=== PATIENT | male | born 1985 | race Hispanic/Latino ===

== ENCOUNTER 2019-08-29 12:49 | Inpatient (IN) | payer OTHER ==
[2019-08-29] MEDS ORDERED: Acetaminophen 500 MG TAB ONE (13:04)
--- NOTE | 2019-08-29 13:25 | RAD ---
Exam: Chest one view HISTORY:COVID positive patient. Sepsis alert. Fever. Comparison: None FINDINGS: Cardiac silhouette: Normal Aorta: Unremarkable Pulmonary vessels: Normal Costophrenic angles: Clear LUNGS: Diminished lung volumes. Patchy interstitial and alveolar opacities. Pneumothorax: None Osseous abnormalities: None IMPRESSION: 1. Patchy interstitial and alveolar opacities due to viral infiltrate/pneumonia.
[2019-08-29 13:28] LABS: #Lymphocytes 0.6 thou/uL (1.20-3.40); #Monocytes 0.2 thou/uL (0.11-0.59); #Neutrophils 8.1 thou/uL (1.40-6.50); %Eosinophils 0.1 % (0.0-10.0); %Lymphocytes 6.9 % (21.0-51.0); %Monocytes 1.8 % (0.0-10.0); %Neutrophils 91.1 % (42.0-75.0); Hemoglobin 14.6 g/dL (14.0-18.0); Mean Corpuscular HGB CONC 33.2 g/dL (32.0-36.0); Mean Corpuscular Volume 87.6 fL (78.0-98.0); Mean Platelet Volume 9.2 fL (7.4-10.4); Platelet Count 128 thou/uL (130-400); Red Blood Cell (RBC) Count 5.04 mill/uL (4.70-6.10); White Blood Cell (WBC) Count 8.9 thou/uL (4.8-10.8)
[2019-08-29 13:49] LABS: ALT (SGPT) 18 U/L (8-55); AST (SGOT) 27 U/L (5-34); Albumin 4.3 g/dL (3.5-5.0); Alkaline Phosphatase 64 U/L (40-110); Anion Gap 13 mmol/L (10-20); BUN (Urea Nitrogen) 9 mg/dL (8.9-20.6); Bilirubin, Total 0.5 mg/dL (0.2-1.2); Calc. Creatinine Clearance 0 mL/min (70-130); Calcium 9.4 mg/dL (7.8-10.44); Carbon Dioxide 28 mmol/L (22-29); Chloride 97 mmol/L (98-107); Estimated GFR-MDRD 86; Glucose 179 mg/dL (70-105); Potassium 3.6 mmol/L (3.5-5.1); Protein, Total 8.3 g/dL (6.0-8.3); Sodium 134 mmol/L (136-145)
[2019-08-29] MEDS ORDERED: Dexamethasone 10 MG/ML VIAL ONE (14:03)
[2019-08-29] MEDS ORDERED: Azithromycin 500 MG VIAL ONE (14:03)
[2019-08-29 14:15] LABS: Actual Bicarbonate (HCO3a) 27.9 mEq/L (22-28); Base Excess (BEa) 4.2 mEq/L (-2.0 to +3.0); CO2 Tension 38.9 mmHg (35.0-45.0); Calcium, Ionized (arterial) 1.15 mmol/L (1.12-1.30); Carboxyhemoglobin (COHb) 1.4 gm% (0.0-3.0); Hemoglobin (Hb) 13.8 g/dL (14.0-18.0); O2 Tension (PaO2), arterial 87.5 mmHg (80.0-100.0); Potassium - ABG Lab 3.68 mmol/L (3.70-5.30); pH, Arterial 7.47 (7.35-7.45)
[2019-08-29 14:16] LABS: ALV-art Gradient 120.555 (0-20); Puncture Site LRA
[2019-08-29] MEDS ORDERED: Acetaminophen 325 MG TAB PO PRN (14:27)
[2019-08-29] MEDS ORDERED: Calcium Carbonate 500 MG ChewTAB PO PRN (14:27)
[2019-08-29] MEDS ORDERED: Senokot S 8.6-50 MG TAB PO PRN (14:27)
[2019-08-29] MEDS ORDERED: Ondansetron PF 4 MG/2 ML Vial IVP PRN (14:27)
[2019-08-29] MEDS ORDERED: Ondansetron ODT 4 MG TAB PO PRN (14:27)
[2019-08-29] MEDS ORDERED: Bisacodyl 10 MG SUPP PR PRN (14:27)
[2019-08-29] MEDS ORDERED: Non-Formulary Item 1 EACH in Sodium Chloride 0.9% 250 ML 210 ML IV SCH (15:30)
[2019-08-29 15:44] LABS: Troponin I Less than 0.010 ng/mL (< 0.028)
[2019-08-29] MEDS: Calcium Carbonate 600 MG + Vit D TAB PO SCH (18:23)
[2019-08-29 18:28] VITALS: BMI 34.5
[2019-08-29] MEDS: guaiFENesin ER 600 MG TAB PO SCH (20:00)
--- NOTE | 2019-08-29 20:42 | HP ---
PRIMARY CARE PHYSICIAN: Kevin Fernandez MD CHIEF COMPLAINT: Shortness of breath. HISTORY OF PRESENT ILLNESS: The patient is a 34-year-old male who was diagnosed with COVID-19 infection 8 days ago. Over the last 2 to 3 days, he developed gradual-worsening shortness of breath to the extent that he was short of breath on minimal exertion. He also was febrile. He had cough, which was productive of small amount of phlegm. Occasionally, he had blood in the sputum. He denies any chest pain, palpitations, or syncope. He had history of exposure to COVID-19 patient prior to onset of his symptoms. In the emergency room, his initial vital signs showed temperature of 103.2 with respirations of 35, pulse rate of 120, with a blood pressure of 127/75, O2 saturation of 92% on 3 L nasal cannula. His room air O2 sats were 80%. He received azithromycin, dexamethasone and Tylenol in the emergency room. PAST MEDICAL HISTORY: 1. Recent diagnosis of COVID-19. 2. Carpal tunnel syndrome. 3. Gout. PAST SURGICAL HISTORY: Bilateral carpal tunnel surgery in 2008. ALLERGIES: NO KNOWN DRUG ALLERGIES. SOCIAL HISTORY: The patient denies any smoking or drug use. He occasionally drinks alcohol. He lives at home with his family. FAMILY HISTORY: Positive for diabetes and heart disease. REVIEW OF SYSTEMS: All other review of systems was reviewed and was found negative. PHYSICAL EXAMINATION: VITAL SIGNS: As discussed above. GENERAL: A 34-year-old male, ill appearing, in mild respiratory distress at rest. HEENT: Head is atraumatic and normocephalic. Sclerae are anicteric. Moist mucous membranes. No oral lesion. NECK: Supple. No JVD appreciated. No carotid bruit. LUNGS: Showed bibasilar rales with rhonchi. No wheezing. Minimal accessory muscle use. HEART: S1 and S2 present. Regular. Tachycardic. No rubs or gallops. ABDOMEN: Soft, nontender. Bowel sounds present. EXTREMITIES: No edema or calf tenderness. NEUROLOGICAL: Grossly nonfocal. Moves all 4 extremities. PSYCHIATRY: Alert, awake, and oriented x3. SKIN: Warm and dry. LYMPH NODES: No palpable lymph nodes in the neck. PERIPHERAL VASCULAR: Radial pulses palpable bilaterally. MUSCULOSKELETAL: No joint swelling or tenderness. LABORATORY FINDINGS: CBC showed WBC of 8.9 with 91% neutrophil. Hemoglobin was 14.6. D-dimer was 0.39. Chemistry showed sodium 134, potassium 3.6, chloride 97, bicarb 28, BUN of 9, and creatinine 1.01. Ferritin was 1360. CRP 27.1. Lactic acid was 1.9. Troponin was negative. BNP was negative. ABG showed pH of 7.47 with pCO2 of 38.9 on 36% FiO2. DIAGNOSTIC STUDIES: Chest x-ray by my review showed bilateral interstitial infiltrates. IMPRESSION: 1. Severe sepsis secondary to coronavirus disease-19 pneumonia. 2. Thrombocytopenia. 3. Obesity with a BMI of 34.6. 4. Hyponatremia. 5. Generalized weakness with fatigue and malaise secondary to above. 6. Elevated inflammatory markers. 7. History of gout. PLAN: The patient will be monitored in the COVID-19 unit. He will be started on remdesivir with dexamethasone. I discussed the case with Infectious Disease, Dr. Soria, who recommended remdesivir. The patient understands the side effects of remdesivir. I have discussed with the patient the emergency use authorization provided by FDA for the use of this medicine, and I explained that it reduces the course of illness. Side effects including renal failure and liver toxicity were discussed. The patient understood and accepted the administration of this medicine. Daily labs will be ordered. The patient meets the criteria for the above medications. We will add Lovenox for DVT prophylaxis. We will monitor inflammatory markers every other day per Infectious Disease recommendation. We will also add empiric cefepime for now. We will discontinue once procalcitonin level comes back. The patient understands the above plan of care. Job ID: [id number]
[2019-08-29] MEDS: Cefepime 1 GM in Sodium Chloride 0.9% 100 ML IVPB SCH (22:21)
[2019-08-30] MEDS ORDERED: Albuterol 200 PUFF (6.7GM INHALER) INH PRN (00:07)
[2019-08-30 05:42] LABS: #Basophils 0.1 thou/uL (0.0-0.2); #Lymphocytes 0.5 thou/uL (1.20-3.40); #Monocytes 0.3 thou/uL (0.11-0.59); #Neutrophils 7.6 thou/uL (1.40-6.50); %Basophils 0.9 % (0.0-1.0); %Eosinophils 0.1 % (0.0-10.0); %Lymphocytes 5.3 % (21.0-51.0); %Neutrophils 90.8 % (42.0-75.0); Hemoglobin 12.9 g/dL (14.0-18.0); Mean Corpuscular Hemoglobin 28.8 pg (27.0-31.0); Mean Corpuscular Volume 87.2 fL (78.0-98.0); Mean Platelet Volume 9.1 fL (7.4-10.4); Platelet Count 151 thou/uL (130-400); RBC Distribution Width 11.8 % (11.5-14.5); Red Blood Cell (RBC) Count 4.49 mill/uL (4.70-6.10); White Blood Cell (WBC) Count 8.3 thou/uL (4.8-10.8)
[2019-08-30 06:07] LABS: ALT (SGPT) 16 U/L (8-55); AST (SGOT) 19 U/L (5-34); Albumin 3.8 g/dL (3.5-5.0); Alkaline Phosphatase 52 U/L (40-110); Anion Gap 11 mmol/L (10-20); BUN (Urea Nitrogen) 13 mg/dL (8.9-20.6); Bilirubin, Total 0.3 mg/dL (0.2-1.2); Calc. Creatinine Clearance 196 mL/min (70-130); Calcium 9.2 mg/dL (7.8-10.44); Carbon Dioxide 29 mmol/L (22-29); Chloride 99 mmol/L (98-107); Estimated GFR-MDRD Greater than 90; Globulin 3.6 g/dL (2.4-3.5); Glucose 155 mg/dL (70-105); Magnesium 2.3 mg/dL (1.6-2.6); Protein, Total 7.4 g/dL (6.0-8.3); Sodium 135 mmol/L (136-145)
[2019-08-30] MEDS ORDERED: Dexamethasone 1 MG TAB PO SCH (08:00)
[2019-08-30] MEDS: Cefepime 1 GM in Sodium Chloride 0.9% 100 ML IVPB SCH ×2 (08:42→19:33)
[2019-08-30] MEDS: Ascorbic Acid 500 mg Chewable Tablet PO SCH (08:43)
[2019-08-30] MEDS: Zinc Sulfate 220 MG CAP PO SCH (08:43)
[2019-08-30] MEDS: Calcium Carbonate 600 MG + Vit D TAB PO SCH ×2 (08:43→16:59)
[2019-08-30] MEDS: guaiFENesin ER 600 MG TAB PO SCH ×2 (08:43→19:33)
[2019-08-30] MEDS: Multivit, Therapeutic 1 TAB PO SCH (08:43)
[2019-08-30] MEDS: Loratadine 10 MG TAB PO SCH (08:43)
[2019-08-30] MEDS: Saccharomyces boulardii 250 MG CAP PO SCH (08:43)
[2019-08-30] MEDS ORDERED: Dexamethasone 10 MG/ML VIAL SLOW IVP SCH (09:00)
[2019-08-30] MEDS ORDERED: Enoxaparin Sodium 40 MG/0.4 ML SYRINGE SC SCH (09:00)
--- NOTE | 2019-08-30 09:05 | PDOC.HOSPP ---
- Subjective Encounter Date: 08/30/19 Encounter Time: 18:30 Subjective: SOB. Feels gen weak. No new complaints. No overnight events - Objective Vital Signs & Weight: Vital Signs (12 hours) Temp Pulse Resp BP Pulse Ox 08/30/19 08:42 94 L 08/30/19 04:00 100.3 F H 86 20 127/78 94 L 08/29/19 23:37 99.2 F 89 20 130/75 100 Weight Weight 248 lb I&O: 08/29/19 08/30/19 08/31/19 06:59 06:59 06:59 Intake Total 240 Output Total 500 Balance -260 Result Diagrams: 09/02/19 04:32 09/02/19 04:32 Radiology Reviewed by me: Yes (CXR - B/L infiltrate) EKG Reviewed by me: Yes (Tele SR) Hospitalist ROS - Review of Systems Constitutional: reports: weakness, malaise Gastrointestinal: denies: nausea, vomiting, abdominal pain, diarrhea, constipation, melena, hematochezia, other Genitourinary: denies: dysuria, frequency, incontinence, hematuria, retention, other - Medication Medications: Active Medications Generic Name Dose Route Start Last Admin Trade Name Freq PRN Reason Stop Dose Admin Ascorbic Acid 1,000 mg 08/30/19 09:00 08/30/19 08:43 Vitamin C PO 1,000 mg DAILY FLY Administration Calcium/Vitamin D 1 tab 08/29/19 17:00 08/30/19 08:43 Caltrate 600 + Vit D PO 1 tab BID-WM FLY Administration Dexamethasone 6 mg 08/30/19 08:00 08/30/19 08:42 Decadron PO 6 mg QAM-WM FLY Administration Enoxaparin Sodium 40 mg 08/30/19 09:00 08/30/19 08:42 Lovenox SC 40 mg 0900 FLY Administration Guaifenesin 600 mg 08/29/19 21:00 08/30/19 08:43 Mucinex PO 600 mg Q12HR FLY Administration Cefepime HCl 1 gm/ Sodium 100 mls @ 200 mls/hr 08/29/19 21:00 08/30/19 08:42 Chloride IVPB 100 mls Q12HR FLY Administration Loratadine 10 mg 08/30/19 09:00 08/30/19 08:43 Claritin PO 10 mg DAILY FLY Administration Multivitamins 1 tab 08/30/19 09:00 08/30/19 08:43 Theragran PO 1 tab DAILY FLY Administration Pantoprazole Sodium 40 mg 08/30/19 09:00 08/30/19 08:43 Protonix PO 40 mg DAILY FLY Administration Saccharomyces Boulardii 250 mg 08/30/19 09:00 08/30/19 08:43 Florastor PO 250 mg DAILY FLY Administration Zinc Sulfate 220 mg 08/30/19 09:00 08/30/19 08:43 Zinc Sulfate PO 220 mg DAILY FLY Administration - Exam General Appearance: ill appearing Neck: no JVD Respiratory: normal chest expansion, no tachypnea Skin: no rashes Neurological: no new deficit Psychiatric: normal affect, A&O x 3 Hosp A/P - Plan 1. Severe sepsis secondary to coronavirus disease-19 pneumonia. 2. Thrombocytopenia. 3. Obesity with a BMI of 34.6. 4. Hyponatremia. 5. Generalized weakness with fatigue and malaise secondary to above. 6. Elevated inflammatory markers. 7. History of gout. PLAN: Cont Remdesivir Cont dexamethasone. Monitor labs daily CRP/D-dimer/Ferritin Await ID input Cont isolation
[2019-08-30 10:31] LABS: Actual Bicarbonate (HCO3a) 24.7 mEq/L (22-28); Base Excess (BEa) 1.2 mEq/L (-2.0 to +3.0); CO2 Tension 35.9 mmHg (35.0-45.0); Calcium, Ionized (arterial) 1.18 mmol/L (1.12-1.30); Carboxyhemoglobin (COHb) 0.8 gm% (0.0-3.0); Hemoglobin (Hb) 14.2 g/dL (14.0-18.0); O2 Tension (PaO2), arterial 63.1 mmHg (80.0-100.0); Potassium - ABG Lab 3.92 mmol/L (3.70-5.30); pH, Arterial 7.46 (7.35-7.45)
--- NOTE | 2019-08-30 10:31 | RAD ---
Exam: Chest one view HISTORY:COVID. Hypoxia and shortness of breath Comparison: 08/29/2019 FINDINGS: Cardiac silhouette: Normal Aorta: Unremarkable Pulmonary vessels: Normal Costophrenic angles: Clear LUNGS: Persistent diminished lung volumes with diffuse interstitial and alveolar opacities. Pneumothorax: None Osseous abnormalities: None IMPRESSION: No significant interval change. Persistent lung parenchymal opacifications.
[2019-08-30 10:42] LABS: Puncture Site LB
[2019-08-30] MEDS: methylPREDNISolone Sod Succ 40 MG VIAL IVP SCH ×3 (12:05→23:20)
--- NOTE | 2019-08-30 13:10 | CON ---
DATE OF CONSULTATION: HISTORY OF PRESENT ILLNESS: Bharathi Mai is a 34-year-old gentleman, who was admitted to the hospital with respiratory failure secondary to coronavirus pneumonia. He apparently was diagnosed to have positive serology coronavirus, presented to the ER with shortness of breath gradually getting worse. His initial temperature in the ER was 99.9, pulse 93, respirations 25, blood pressure 160/78, his saturations are 98% initially on high-flow. This morning apparently, his saturations are improved during switching to O2 on 5 L nasal O2. He received a dose of Remdesivir last night. His initial diagnosis was 8 days ago. Initially, he was relatively asymptomatic and finally he started having difficulty breathing. PAST MEDICAL HISTORY: Pertinent for gout. PREVIOUS SURGERIES: Carpal tunnel. ALLERGIES: NONE. SOCIAL HISTORY: No tobacco or substance abuse. Minimal alcohol. HOME MEDICINES: Unknown. Social history, unremarkable. PHYSICAL EXAMINATION: VITAL SIGNS: Temperature 98, pulse 72, respiratory rate 24, saturations this morning 94% on nasal O2, blood pressure 112/87. CHEST: No crackles or wheezing. CARDIAC: Normal S1 and S2. No gallops. ABDOMEN: No masses. LABORATORY DATA: PO2 of 63, pCO2 of 35, pH 7.46 on 5 L. X-ray shows bilateral infiltrates. White count 8000. Repeat chest x-ray was ordered this morning. IMPRESSION: Respiratory failure secondary to coronavirus positive bronchopneumonia diagnosed 8 days ago, morbid obesity, acute respiratory distress syndrome. PLAN: I increased the steroids. Continue Maxipime, Zithromax, Remdesivir, convalescent plasma. We will follow. Consultation note, 70 minutes, 50% direct patient care. Job ID: [id number]
[2019-08-30] MEDS: Non-Formulary Item 1 EACH in Sodium Chloride 0.9% 250 ML 230 ML IV SCH (15:02)
--- NOTE | 2019-08-30 20:19 | CON ---
DATE OF CONSULTATION: 08/30/2019 REASON FOR CONSULTATION: COVID-19 pneumonia. HISTORY OF PRESENT ILLNESS: A 34-year-old, who has no medical history and works driving a dump truck and has had symptoms consistent with COVID infection for the past nine days approximately. He was tested last week and then turned positive and then deteriorated, had to be admitted. On arrival; temperature 103.2 and O2 saturations were 92 and BP 118/72. He was tachypneic, appear toxic. He was in moderate respiratory distress. Lungs did not show any crackles or wheezing. Heart exam, normal. Abdomen; soft, not tender or distended. Other findings initially with a white cell count 8.9, hemoglobin 14.6, and platelets 128 with 91% neutrophils. D-dimer 0.39. A pH of 7.47, pCO2 of 38, and pO2 of 87. Chemistries were fairly unremarkable. Glucose 155 and globulin 3.6. The CRP was high though at 27 and ferritin 1360. BNP was less than 10. So, he has been started on Remdesivir and Decadron and cefepime. Yesterday, he decompensated and became very very febrile and tachycardic, hypoxemic, so Pulmonary is consulted. He was switched to methylprednisolone as getting convalescent plasma. He is awake and is feeling a little better. He denies headaches. Mild dyspnea and some cough. No sputum production. He had some hemoptysis earlier. No abdominal pain or diarrhea. No genitourinary symptoms. No joint symptoms. No skin disorder. PAST MEDICAL HISTORY: Negative. SOCIAL HISTORY: Works driving a dump truck. Never smoker. Lives with family in the area. ALLERGIES: NONE. CURRENT MEDICATIONS: 1. Albuterol. 2. Vitamin C. 3. Dulcolax. 4. Caltrate. 5. Cefepime. 6. Lovenox. 7. Mucinex. 8. Claritin. 9. Medrol. 10. Remdesivir. 11. Methylprednisolone. 12. Convalescent plasma. PHYSICAL EXAMINATION: VITAL SIGNS: T-max 100.3, BP 117/67, pulse 82, respirations 22, and O2 saturation 97. SKIN: Normal. Few tattoos. Peripheral IV access. He is voiding in the urinal. No lymphadenopathy. HEENT: Ocular movements are intact. Sclerae white. Pupils are equal. Oral cavity normal. NECK: Supple. No jugular vein distention. LUNGS: Symmetric clear breath sounds. HEART: S1 and S2. Regular rate. No S3 or S4. ABDOMEN: Soft, not distended or tender. EXTREMITIES: Moves extremities equally. LABORATORY DATA: White cell count is 8.3, hemoglobin 12.9, and platelets 151 with 9% neutrophils and a chemistry with a sodium 135 and creatinine 0.86. Liver profile normal. Albumin 3.8. Blood cultures, no growth thus far. Chest x-ray with diffuse bilateral infiltrates. There was not very good inspiratory effort. The admit chest x-ray demonstrated infiltrates with not as confluent. ASSESSMENT AND PLAN: Severe COVID pneumonia with initial deterioration, tomorrow is going to be the day, so he is in inflammatory phase of illness now, I believe, and that probably explains the deterioration over the past 48 hours. He is now at 97 with nasal cannula 5 L. He is at risk for further deterioration, but hopefully with corticosteroids and the antiviral treatments that he will turn around. Otherwise, he will end up with in the ICU with high-flow nasal cannula or intubated. May try via prone positioning for him even without intubation. See if next time, he becomes hypoxemic, if he would improve the oxygenation. Job ID: [id number] [facility]
[2019-08-31] MEDS: methylPREDNISolone Sod Succ 40 MG VIAL IVP SCH ×4 (05:18→23:59)
[2019-08-31 05:31] LABS: #Lymphocytes 0.6 thou/uL (1.20-3.40); #Monocytes 0.3 thou/uL (0.11-0.59); #Neutrophils 11.8 thou/uL (1.40-6.50); %Eosinophils 0.1 % (0.0-10.0); %Monocytes 2.4 % (0.0-10.0); %Neutrophils 92.5 % (42.0-75.0); Mean Corpuscular HGB CONC 33.4 g/dL (32.0-36.0); Mean Corpuscular Hemoglobin 28.9 pg (27.0-31.0); Mean Corpuscular Volume 86.5 fL (78.0-98.0); Mean Platelet Volume 8.5 fL (7.4-10.4); Platelet Count 209 thou/uL (130-400); RBC Distribution Width 11.6 % (11.5-14.5); Red Blood Cell (RBC) Count 4.51 mill/uL (4.70-6.10); White Blood Cell (WBC) Count 12.7 thou/uL (4.8-10.8)
[2019-08-31 05:57] LABS: ALT (SGPT) 16 U/L (8-55); AST (SGOT) 19 U/L (5-34); Albumin 3.7 g/dL (3.5-5.0); Alkaline Phosphatase 49 U/L (40-110); Anion Gap 16 mmol/L (10-20); BUN (Urea Nitrogen) 19 mg/dL (8.9-20.6); Bilirubin, Total 0.3 mg/dL (0.2-1.2); Calc. Creatinine Clearance 192 mL/min (70-130); Calcium 9.3 mg/dL (7.8-10.44); Carbon Dioxide 26 mmol/L (22-29); Chloride 100 mmol/L (98-107); Estimated GFR-MDRD Greater than 90; Globulin 3.6 g/dL (2.4-3.5); Glucose 177 mg/dL (70-105); Protein, Total 7.3 g/dL (6.0-8.3); Sodium 138 mmol/L (136-145)
[2019-08-31] MEDS: Ascorbic Acid 500 mg Chewable Tablet PO SCH (08:36)
[2019-08-31] MEDS: Loratadine 10 MG TAB PO SCH (08:37)
[2019-08-31] MEDS: guaiFENesin ER 600 MG TAB PO SCH ×2 (08:37→21:34)
[2019-08-31] MEDS: Zinc Sulfate 220 MG CAP PO SCH (08:37)
[2019-08-31] MEDS: Calcium Carbonate 600 MG + Vit D TAB PO SCH ×2 (08:37→16:00)
[2019-08-31] MEDS: Multivit, Therapeutic 1 TAB PO SCH (08:37)
[2019-08-31] MEDS: Saccharomyces boulardii 250 MG CAP PO SCH (08:37)
[2019-08-31] MEDS: Cefepime 1 GM in Sodium Chloride 0.9% 100 ML IVPB SCH ×2 (08:37→21:34)
[2019-08-31] MEDS ORDERED: Enoxaparin Sodium 40 MG/0.4 ML SYRINGE SC SCH (09:00)
--- NOTE | 2019-08-31 09:53 | PRG ---
DATE OF SERVICE: 08/31/2019 SUBJECTIVE: Bharathi Mai is a 34-year-old gentleman with coronavirus positive pneumonia, acute respiratory distress syndrome. OBJECTIVE: VITAL SIGNS: Temperature 97, pulse 78, saturations on 50% Venti mask, blood pressure 104/57, short of breath still. CHEST: Crackles. No wheezing. CARDIAC: Normal S1, S2. No gallops. ABDOMEN: No masses. LABORATORY DATA: PO2 was 63, pCO2 of 30% 5 L nasal O2. His white count was only 12,000, platelet count is normal. Coronavirus positive pneumonia, respiratory failure. Continue Maxipime, doxycycline steroids. He has already had remdisivir as well as plasma. We will increase his Lovenox to twice a day since they are very hypercoagulable. We will continue to follow. Hopefully, once his saturation improved, he may be discharged to home. Job ID: [id number]
--- NOTE | 2019-08-31 10:01 | PDOC.HOSPP ---
- Subjective Encounter Date: 08/31/19 Encounter Time: 19:00 Subjective: No new complaints. SOB + No overnight events - Objective Vital Signs & Weight: Vital Signs (12 hours) Temp Pulse Resp BP Pulse Ox 08/31/19 08:20 94 L 08/31/19 08:02 97.9 F 78 40 H 104/57 L 92 L 08/31/19 08:00 92 L 08/31/19 05:24 98.8 F 73 32 H 113/65 94 L 08/30/19 23:31 99.7 F H 88 32 H 120/62 96 Weight Weight 248 lb I&O: 08/30/19 08/31/19 09/01/19 06:59 06:59 06:59 Intake Total 240 0 Output Total 500 800 Balance -260 -800 Result Diagrams: 09/02/19 04:32 09/02/19 04:32 EKG Reviewed by me: Yes (Tele SR) Hospitalist ROS - Review of Systems Gastrointestinal: denies: nausea, vomiting, abdominal pain, diarrhea, constipation, melena, hematochezia, other Genitourinary: denies: dysuria, frequency, incontinence, hematuria, retention, other - Medication Medications: Active Medications Generic Name Dose Route Start Last Admin Trade Name Freq PRN Reason Stop Dose Admin Ascorbic Acid 1,000 mg 08/30/19 09:00 08/31/19 08:36 Vitamin C PO 1,000 mg DAILY FLY Administration Calcium/Vitamin D 1 tab 08/29/19 17:00 08/31/19 08:37 Caltrate 600 + Vit D PO 1 tab BID-WM FLY Administration Guaifenesin 600 mg 08/29/19 21:00 08/31/19 08:37 Mucinex PO 600 mg Q12HR FLY Administration Non-Formulary Medication 1 230 mls @ 230 mls/hr 08/30/19 15:00 08/30/19 15:02 each/ Sodium Chloride IV 09/02/19 15:59 230 mls 1500 FLY Administration Cefepime HCl 1 gm/ Sodium 100 mls @ 200 mls/hr 08/29/19 21:00 08/31/19 08:37 Chloride IVPB 100 mls Q12HR FLY Administration Loratadine 10 mg 08/30/19 09:00 08/31/19 08:37 Claritin PO 10 mg DAILY FLY Administration Methylprednisolone Sodium Succinate 40 mg 08/30/19 12:00 08/31/19 05:18 Solu-Medrol IVP 40 mg Q6HR FLY Administration Multivitamins 1 tab 08/30/19 09:00 08/31/19 08:37 Theragran PO 1 tab DAILY FLY Administration Saccharomyces Boulardii 250 mg 08/30/19 09:00 08/31/19 08:37 Florastor PO 250 mg DAILY FLY Administration Zinc Sulfate 220 mg 08/30/19 09:00 08/31/19 08:37 Zinc Sulfate PO 220 mg DAILY FLY Administration - Exam General Appearance: NAD Eye: PERRL Neck: no JVD Respiratory: no tachypnea Neurological: no new deficit Psychiatric: normal affect, A&O x 3 Hosp A/P - Plan 1. Severe sepsis/Acute hypoxic resp failue due to COVID-19 pneumonia. 2. Thrombocytopenia. 3. Obesity with a BMI of 34.6. 4. Hyponatremia. 5. Generalized weakness with fatigue and malaise secondary to above. 6. Elevated inflammatory markers. 7. History of gout. PLAN: Cont IV Remdesivir - on day 3 Cont IV Steroids CRP/D-dimer/Ferritin every other day ID/Pulm input appreciated Cont isolation AM labs
[2019-08-31] MEDS ORDERED: Doxycycline 100 MG CAP PO SCH (10:15)
[2019-08-31] MEDS: Non-Formulary Item 1 EACH in Sodium Chloride 0.9% 250 ML 230 ML IV SCH (15:55)
[2019-08-31] MEDS ORDERED: guaiFENesin/Codeine Phosphate 200 mg/20 mg 10 ml UD Cup PO PRN (18:15)
[2019-08-31] MEDS ORDERED: Cepastat Lozenges 1 LOZ PO PRN (18:45)
[2019-08-31] MEDS: Famotidine/PF 20 mg/2ml Vial SLOW IVP SCH (21:33)
[2019-08-31] MEDS: Doxycycline 100 MG CAP PO SCH (21:33)
[2019-08-31] MEDS: Enoxaparin Sodium 40 MG/0.4 ML SYRINGE SC SCH (21:35)
[2019-08-31] MEDS: Guaifenesin DM 100-10/5 ML UDCUP PO PRN (22:16)
[2019-09-01] MEDS: methylPREDNISolone Sod Succ 40 MG VIAL IVP SCH ×4 (05:25→23:29)
[2019-09-01 05:53] LABS: #Lymphocytes 0.7 thou/uL (1.20-3.40); #Monocytes 0.6 thou/uL (0.11-0.59); #Neutrophils 12.6 thou/uL (1.40-6.50); %Basophils 0.1 % (0.0-1.0); %Lymphocytes 4.7 % (21.0-51.0); %Monocytes 4.6 % (0.0-10.0); %Neutrophils 90.6 % (42.0-75.0); Hemoglobin 13.2 g/dL (14.0-18.0); Mean Corpuscular HGB CONC 33.5 g/dL (32.0-36.0); Mean Corpuscular Hemoglobin 29.2 pg (27.0-31.0); Mean Corpuscular Volume 87.1 fL (78.0-98.0); Mean Platelet Volume 8.6 fL (7.4-10.4); Platelet Count 256 thou/uL (130-400); RBC Distribution Width 11.7 % (11.5-14.5); Red Blood Cell (RBC) Count 4.53 mill/uL (4.70-6.10); White Blood Cell (WBC) Count 13.9 thou/uL (4.8-10.8)
[2019-09-01 06:17] LABS: ALT (SGPT) 16 U/L (8-55); AST (SGOT) 15 U/L (5-34); Albumin 3.6 g/dL (3.5-5.0); Alkaline Phosphatase 52 U/L (40-110); Anion Gap 18 mmol/L (10-20); BUN (Urea Nitrogen) 21 mg/dL (8.9-20.6); Bilirubin, Total 0.4 mg/dL (0.2-1.2); Calc. Creatinine Clearance 179 mL/min (70-130); Calcium 9.2 mg/dL (7.8-10.44); Carbon Dioxide 24 mmol/L (22-29); Chloride 102 mmol/L (98-107); Estimated GFR-MDRD Greater than 90; Globulin 3.4 g/dL (2.4-3.5); Glucose 180 mg/dL (70-105); Potassium 4.5 mmol/L (3.5-5.1); Sodium 139 mmol/L (136-145)
[2019-09-01] MEDS: Zinc Sulfate 220 MG CAP PO SCH (08:09)
[2019-09-01] MEDS: Enoxaparin Sodium 40 MG/0.4 ML SYRINGE SC SCH ×2 (08:10→19:20)
[2019-09-01] MEDS: Ascorbic Acid 500 mg Chewable Tablet PO SCH (08:10)
[2019-09-01] MEDS: Saccharomyces boulardii 250 MG CAP PO SCH (08:10)
[2019-09-01] MEDS: Calcium Carbonate 600 MG + Vit D TAB PO SCH ×2 (08:10→17:35)
[2019-09-01] MEDS: Doxycycline 100 MG CAP PO SCH ×2 (08:10→19:20)
[2019-09-01] MEDS: Multivit, Therapeutic 1 TAB PO SCH (08:10)
[2019-09-01] MEDS: guaiFENesin ER 600 MG TAB PO SCH ×2 (08:10→19:20)
[2019-09-01] MEDS: Loratadine 10 MG TAB PO SCH (08:10)
[2019-09-01] MEDS: Famotidine/PF 20 mg/2ml Vial SLOW IVP SCH ×2 (08:11→19:20)
[2019-09-01] MEDS: Cefepime 1 GM in Sodium Chloride 0.9% 100 ML IVPB SCH ×2 (08:11→19:19)
--- NOTE | 2019-09-01 08:50 | PDOC.HOSPP ---
- Subjective Encounter Date: 09/01/19 Encounter Time: 18:00 Subjective: No new complaints. SOB with dry cough+. No overnight events - Objective Vital Signs & Weight: Vital Signs (12 hours) Temp Pulse Resp BP BP Pulse Ox 09/01/19 08:18 94 L 09/01/19 08:15 98.5 F 69 20 116/69 95 09/01/19 05:35 98.2 F 58 L 24 H 113/55 L 94 L 09/01/19 02:27 96 09/01/19 00:10 61 93 L 08/31/19 21:50 98.9 F 77 40 H 120/66 92 L Weight Weight 244 lb 3.2 oz I&O: 08/31/19 09/01/19 09/02/19 06:59 06:59 06:59 Intake Total 240 340 Output Total 800 1025 Balance -560 -685 Result Diagrams: 09/02/19 04:32 09/02/19 04:32 EKG Reviewed by me: Yes (Tele SR) Hospitalist ROS - Review of Systems Cardiovascular: denies: chest pain, palpitations, orthopnea, paroxysmal noc. dyspnea, edema, light headedness, other Gastrointestinal: denies: nausea, vomiting, abdominal pain, diarrhea, constipation, melena, hematochezia, other - Medication Medications: Active Medications Generic Name Dose Route Start Last Admin Trade Name Bowenq PRN Reason Stop Dose Admin Ascorbic Acid 1,000 mg 08/30/19 09:00 09/01/19 08:10 Vitamin C PO 1,000 mg DAILY FLY Administration Calcium/Vitamin D 1 tab 08/29/19 17:00 09/01/19 08:10 Caltrate 600 + Vit D PO 1 tab BID-WM FLY Administration Doxycycline Hyclate 100 mg 08/31/19 21:00 09/01/19 08:10 Vibramycin PO 09/07/19 09:01 100 mg BID FLY Administration Enoxaparin Sodium 40 mg 08/31/19 21:00 09/01/19 08:10 Lovenox SC 40 mg BID FLY Administration Famotidine 20 mg 08/31/19 21:00 09/01/19 08:11 Pepcid SLOW IVP 20 mg BID FLY Administration Guaifenesin 600 mg 08/29/19 21:00 09/01/19 08:10 Mucinex PO 600 mg Q12HR FLY Administration Guaifenesin/Dextromethorphan 15 ml 08/31/19 18:45 08/31/19 22:16 Robitussin Dm PO 15 ml Q4H PRN Administration Cough Non-Formulary Medication 1 230 mls @ 230 mls/hr 08/30/19 15:00 08/31/19 15:55 each/ Sodium Chloride IV 09/02/19 15:59 230 mls 1500 FLY Administration Cefepime HCl 1 gm/ Sodium 100 mls @ 200 mls/hr 08/29/19 21:00 09/01/19 08:11 Chloride IVPB 100 mls Q12HR FLY Administration Loratadine 10 mg 09/01/19 09:00 09/01/19 08:10 Claritin PO 10 mg DAILY FLY Administration Methylprednisolone Sodium Succinate 40 mg 08/30/19 12:00 09/01/19 05:25 Solu-Medrol IVP 40 mg Q6HR FLY Administration Multivitamins 1 tab 08/30/19 09:00 09/01/19 08:10 Theragran PO 1 tab DAILY FLY Administration Saccharomyces Boulardii 250 mg 08/30/19 09:00 09/01/19 08:10 Florastor PO 250 mg DAILY FLY Administration Sodium Chloride 10 ml 08/29/19 14:27 09/01/19 08:11 Flush - Normal Saline IVF 10 ml PRN PRN Administration Saline Flush Zinc Sulfate 220 mg 08/30/19 09:00 09/01/19 08:09 Zinc Sulfate PO 220 mg DAILY FLY Administration - Exam General Appearance: NAD Eye: PERRL Heart: RRR Respiratory: normal chest expansion, no tachypnea Neurological: no new deficit Psychiatric: normal affect, A&O x 3 Hosp A/P - Plan DVT proph w/SCDs 1. Severe sepsis/Acute hypoxic resp failue due to COVID-19 pneumonia. 2. Thrombocytopenia - improving 3. Obesity with a BMI of 34.6. 4. Hyponatremia. 5. Generalized weakness with fatigue and malaise secondary to above. 6. Elevated inflammatory markers. 7. History of gout. PLAN: Cont IV Remdesivir - on day 4 Cont IV Steroids CRP/D-dimer/Ferritin in AM ID/Pulm input appreciated Cont isolation AM labs
--- NOTE | 2019-09-01 12:55 | PRG ---
DATE OF SERVICE: 09/01/2019 OBJECTIVE: VITAL SIGNS: Temperature 98, pulse 69, respirations 20, saturations are 95% on 4 L, blood pressure 110/63. GENERAL: Apparently, he is somewhat better. CHEST: No wheezing, crackles. CARDIAC: Normal S1, S2. No gallops. ABDOMEN: No masses. LABORATORY DATA: Unremarkable. ASSESSMENT AND PLAN: Coronavirus positive pneumonia, respiratory failure, acute respiratory distress syndrome. He is better. Continue steroids, neb treatment, supportive care. He is to be discharged in the next 24 hours. Antibiotics for 10 days. Prednisone for 2 weeks, tapering doses. Job ID: [id number]
[2019-09-01] MEDS: Guaifenesin DM 100-10/5 ML UDCUP PO PRN ×2 (13:20→20:08)
[2019-09-01] MEDS: Non-Formulary Item 1 EACH in Sodium Chloride 0.9% 250 ML 230 ML IV SCH (17:35)
--- NOTE | 2019-09-01 17:40 | PRG ---
DATE OF SERVICE: 09/01/2019 SUBJECTIVE: The patient appears to be feeling better. He is not anxious. OBJECTIVE: VITAL SIGNS: Show normal temperature, BP 118/66, pulse 68. His respiratory rate is decreased to 22 per minute, O2 saturations are stable at 95, and now, he is on nasal cannula at 5 L/minute. LUNGS: Symmetric air entry. No obvious crackles or wheezing. HEART: S1, S2. Regular rate. No S3 or S4. ABDOMEN: Soft, not distended or tender. LABORATORY DATA: His white cell count 13.9, hemoglobin 13, platelets 256, and 90% neutrophils. Creatinine 0.93. Ferritin is down to a 1000. CRP is down to 9.41, which is a big drop. The D-dimer is a little bit up to 1.09. ASSESSMENT AND DISCUSSION: Severe coronavirus disease pneumonia with some improvement since he kind of decompensated a few days ago. The inflammatory markers are improving, so I expect further improvement in the next few days. He is still on corticosteroids and antiviral treatment. Job ID: [id number]
[2019-09-02 05:11] LABS: #Lymphocytes 0.8 thou/uL (1.20-3.40); #Monocytes 0.6 thou/uL (0.11-0.59); #Neutrophils 12.1 thou/uL (1.40-6.50); %Basophils 0.3 % (0.0-1.0); %Eosinophils 0.2 % (0.0-10.0); %Lymphocytes 6.2 % (21.0-51.0); %Monocytes 4.6 % (0.0-10.0); %Neutrophils 88.8 % (42.0-75.0); Hemoglobin 13.5 g/dL (14.0-18.0); Mean Corpuscular HGB CONC 33.7 g/dL (32.0-36.0); Mean Corpuscular Volume 86.3 fL (78.0-98.0); Mean Platelet Volume 8.9 fL (7.4-10.4); Platelet Count 271 thou/uL (130-400); RBC Distribution Width 11.6 % (11.5-14.5); Red Blood Cell (RBC) Count 4.64 mill/uL (4.70-6.10); White Blood Cell (WBC) Count 13.6 thou/uL (4.8-10.8)
[2019-09-02] MEDS: methylPREDNISolone Sod Succ 40 MG VIAL IVP SCH ×3 (05:17→17:05)
[2019-09-02 05:57] LABS: ALT (SGPT) 20 U/L (8-55); AST (SGOT) 14 U/L (5-34); Albumin 3.5 g/dL (3.5-5.0); Alkaline Phosphatase 50 U/L (40-110); Anion Gap 16 mmol/L (10-20); BUN (Urea Nitrogen) 20 mg/dL (8.9-20.6); Bilirubin, Total 0.5 mg/dL (0.2-1.2); Calc. Creatinine Clearance 189 mL/min (70-130); Calcium 8.9 mg/dL (7.8-10.44); Carbon Dioxide 22 mmol/L (22-29); Chloride 104 mmol/L (98-107); Estimated GFR-MDRD Greater than 90; Globulin 3.4 g/dL (2.4-3.5); Glucose 175 mg/dL (70-105); Potassium 4.3 mmol/L (3.5-5.1); Protein, Total 6.9 g/dL (6.0-8.3); Sodium 138 mmol/L (136-145)
[2019-09-02] MEDS: Zinc Sulfate 220 MG CAP PO SCH (08:39)
[2019-09-02] MEDS: Enoxaparin Sodium 40 MG/0.4 ML SYRINGE SC SCH ×2 (08:39→19:54)
[2019-09-02] MEDS: Famotidine/PF 20 mg/2ml Vial SLOW IVP SCH ×2 (08:39→19:53)
[2019-09-02] MEDS: Ascorbic Acid 500 mg Chewable Tablet PO SCH (08:39)
[2019-09-02] MEDS: Loratadine 10 MG TAB PO SCH (08:40)
[2019-09-02] MEDS: guaiFENesin ER 600 MG TAB PO SCH ×2 (08:40→19:53)
[2019-09-02] MEDS: Saccharomyces boulardii 250 MG CAP PO SCH (08:40)
[2019-09-02] MEDS: Doxycycline 100 MG CAP PO SCH ×2 (08:40→19:53)
[2019-09-02] MEDS: Calcium Carbonate 600 MG + Vit D TAB PO SCH ×2 (08:40→16:56)
[2019-09-02] MEDS: Multivit, Therapeutic 1 TAB PO SCH (08:40)
[2019-09-02] MEDS: Cefepime 1 GM in Sodium Chloride 0.9% 100 ML IVPB SCH ×2 (08:41→19:59)
--- NOTE | 2019-09-02 10:59 | PDOC.HOSPP ---
- Subjective Encounter Date: 09/02/19 Encounter Time: 18:00 Subjective: Patient seen and examined for Sepsis. Feels gen weak. SOB improving. No new complaints. No overnight events - Objective Vital Signs & Weight: Vital Signs (12 hours) Temp Pulse Resp BP Pulse Ox 09/02/19 08:40 95 09/02/19 08:00 98.3 F 60 22 H 115/65 95 09/02/19 05:23 98.4 F 46 L 22 H 110/56 L 93 L 09/01/19 23:40 56 L 26 H 93 L Weight Weight 244 lb 3.2 oz I&O: 09/01/19 09/02/19 09/03/19 06:59 06:59 06:59 Intake Total 340 1574 Output Total 1025 1300 Balance -685 274 Result Diagrams: 09/03/19 05:02 09/03/19 05:02 EKG Reviewed by me: Yes (Tele SR) Hospitalist ROS - Review of Systems Respiratory: reports: cough, dry, SOB with excertion Cardiovascular: denies: chest pain, palpitations, orthopnea, paroxysmal noc. dyspnea, edema, light headedness, other - Medication Medications: Active Medications Generic Name Dose Route Start Last Admin Trade Name Freq PRN Reason Stop Dose Admin Ascorbic Acid 1,000 mg 08/30/19 09:00 09/02/19 08:39 Vitamin C PO 1,000 mg DAILY FLY Administration Calcium/Vitamin D 1 tab 08/29/19 17:00 09/02/19 08:40 Caltrate 600 + Vit D PO 1 tab BID-WM FLY Administration Doxycycline Hyclate 100 mg 08/31/19 21:00 09/02/19 08:40 Vibramycin PO 09/07/19 09:01 100 mg BID FLY Administration Enoxaparin Sodium 40 mg 08/31/19 21:00 09/02/19 08:39 Lovenox SC 40 mg BID FLY Administration Famotidine 20 mg 08/31/19 21:00 09/02/19 08:39 Pepcid SLOW IVP 20 mg BID FLY Administration Guaifenesin 600 mg 08/29/19 21:00 09/02/19 08:40 Mucinex PO 600 mg Q12HR FLY Administration Guaifenesin/Dextromethorphan 15 ml 08/31/19 18:45 09/01/19 20:08 Robitussin Dm PO 15 ml Q4H PRN Administration Cough Non-Formulary Medication 1 230 mls @ 230 mls/hr 08/30/19 15:00 09/01/19 17:35 each/ Sodium Chloride IV 09/02/19 15:59 230 mls 1500 FLY Administration Cefepime HCl 1 gm/ Sodium 100 mls @ 200 mls/hr 08/29/19 21:00 09/02/19 08:41 Chloride IVPB 100 mls Q12HR FLY Administration Loratadine 10 mg 09/01/19 09:00 09/02/19 08:40 Claritin PO 10 mg DAILY FLY Administration Methylprednisolone Sodium Succinate 40 mg 08/30/19 12:00 09/02/19 05:17 Solu-Medrol IVP 40 mg Q6HR FLY Administration Multivitamins 1 tab 08/30/19 09:00 09/02/19 08:40 Theragran PO 1 tab DAILY FLY Administration Saccharomyces Boulardii 250 mg 08/30/19 09:00 09/02/19 08:40 Florastor PO 250 mg DAILY FLY Administration Sodium Chloride 10 ml 08/29/19 14:27 09/02/19 05:17 Flush - Normal Saline IVF 10 ml PRN PRN Administration Saline Flush Zinc Sulfate 220 mg 08/30/19 09:00 09/02/19 08:39 Zinc Sulfate PO 220 mg DAILY FLY Administration - Exam General Appearance: ill appearing Neck: supple Heart: RRR, no gallops Respiratory: no wheezes, rales, rhonchi Gastrointestinal: non-tender, non-distended, normal bowel sounds Extremities: no cyanosis, no clubbing Neurological: no new deficit Psychiatric: A&O x 3 Hosp A/P - Plan DVT proph w/lovenox, DVT proph w/SCDs Severe sepsis/Acute hypoxic resp failue due to COVID-19 pneumonia. -on IV Remdesivir -on IV Steroids -on O2 supp Thrombocytopenia - improving Obesity with a BMI of 34.6. Hyponatremia. Generalized weakness with fatigue and malaise secondary to above. Elevated inflammatory markers. Gout. PLAN: Cont IV Remdesivir - on day 5 Cont IV Steroids CRP/D-dimer/Ferritin improving ID/Pulm following Cont isolation AM labs
[2019-09-02] MEDS: Non-Formulary Item 1 EACH in Sodium Chloride 0.9% 250 ML 230 ML IV SCH (15:11)
[2019-09-03] MEDS: methylPREDNISolone Sod Succ 40 MG VIAL IVP SCH ×5 (01:38→23:35)
[2019-09-03 05:37] LABS: #Monocytes 0.6 thou/uL (0.11-0.59); #Neutrophils 13.6 thou/uL (1.40-6.50); %Basophils 0.1 % (0.0-1.0); %Eosinophils 0.2 % (0.0-10.0); %Lymphocytes 6.3 % (21.0-51.0); %Monocytes 4.1 % (0.0-10.0); %Neutrophils 89.4 % (42.0-75.0); Hemoglobin 14.2 g/dL (14.0-18.0); Mean Corpuscular Volume 85.6 fL (78.0-98.0); Mean Platelet Volume 8.4 fL (7.4-10.4); Platelet Count 308 thou/uL (130-400); RBC Distribution Width 11.7 % (11.5-14.5); Red Blood Cell (RBC) Count 4.72 mill/uL (4.70-6.10); White Blood Cell (WBC) Count 15.2 thou/uL (4.8-10.8)
[2019-09-03 06:03] LABS: ALT (SGPT) 22 U/L (8-55); AST (SGOT) 14 U/L (5-34); Albumin 3.6 g/dL (3.5-5.0); Alkaline Phosphatase 45 U/L (40-110); Anion Gap 15 mmol/L (10-20); BUN (Urea Nitrogen) 20 mg/dL (8.9-20.6); Bilirubin, Total 0.7 mg/dL (0.2-1.2); Calc. Creatinine Clearance 191 mL/min (70-130); Calcium 9.2 mg/dL (7.8-10.44); Carbon Dioxide 25 mmol/L (22-29); Chloride 100 mmol/L (98-107); Estimated GFR-MDRD Greater than 90; Globulin 3.2 g/dL (2.4-3.5); Glucose 200 mg/dL (70-105); Potassium 4.6 mmol/L (3.5-5.1); Protein, Total 6.8 g/dL (6.0-8.3); Sodium 135 mmol/L (136-145)
[2019-09-03] MEDS: Enoxaparin Sodium 40 MG/0.4 ML SYRINGE SC SCH ×2 (07:28→20:56)
[2019-09-03] MEDS: Doxycycline 100 MG CAP PO SCH ×2 (07:28→20:55)
[2019-09-03] MEDS: Saccharomyces boulardii 250 MG CAP PO SCH (07:28)
[2019-09-03] MEDS: Ascorbic Acid 500 mg Chewable Tablet PO SCH (07:28)
[2019-09-03] MEDS: Cefepime 1 GM in Sodium Chloride 0.9% 100 ML IVPB SCH ×2 (07:29→20:53)
[2019-09-03] MEDS: Loratadine 10 MG TAB PO SCH (07:29)
[2019-09-03] MEDS: Calcium Carbonate 600 MG + Vit D TAB PO SCH ×2 (07:29→16:46)
[2019-09-03] MEDS: Zinc Sulfate 220 MG CAP PO SCH (07:29)
[2019-09-03] MEDS: Famotidine/PF 20 mg/2ml Vial SLOW IVP SCH ×2 (07:29→20:55)
[2019-09-03] MEDS: guaiFENesin ER 600 MG TAB PO SCH ×2 (07:29→20:55)
[2019-09-03] MEDS: Multivit, Therapeutic 1 TAB PO SCH (07:29)
--- NOTE | 2019-09-03 17:50 | PDOC.HOSPP ---
- Objective Vital Signs & Weight: Vital Signs (12 hours) Temp Pulse Resp BP Pulse Ox 09/03/19 16:50 98.5 F 55 L 20 111/60 99 09/03/19 12:09 98.2 F 52 L 20 113/61 96 09/03/19 07:35 98.6 F 57 L 20 107/59 L 92 L Weight Weight 238 lb 3.2 oz I&O: 09/02/19 09/03/19 09/04/19 06:59 06:59 06:59 Intake Total 1574 Output Total 1300 1100 Balance 274 -1100 Result Diagrams: 09/03/19 05:02 09/03/19 05:02 Hospitalist ROS - Medication Medications: Active Medications Generic Name Dose Route Start Last Admin Trade Name Freq PRN Reason Stop Dose Admin Ascorbic Acid 1,000 mg 08/30/19 09:00 09/03/19 07:28 Vitamin C PO 1,000 mg DAILY FLY Administration Calcium/Vitamin D 1 tab 08/29/19 17:00 09/03/19 16:46 Caltrate 600 + Vit D PO 1 tab BID-WM FLY Administration Doxycycline Hyclate 100 mg 08/31/19 21:00 09/03/19 07:28 Vibramycin PO 09/07/19 09:01 100 mg BID FLY Administration Enoxaparin Sodium 40 mg 08/31/19 21:00 09/03/19 07:28 Lovenox SC 40 mg BID FLY Administration Famotidine 20 mg 08/31/19 21:00 09/03/19 07:29 Pepcid SLOW IVP 20 mg BID FLY Administration Guaifenesin 600 mg 08/29/19 21:00 09/03/19 07:29 Mucinex PO 600 mg Q12HR FLY Administration Guaifenesin/Dextromethorphan 15 ml 08/31/19 18:45 09/01/19 20:08 Robitussin Dm PO 15 ml Q4H PRN Administration Cough Cefepime HCl 1 gm/ Sodium 100 mls @ 200 mls/hr 08/29/19 21:00 09/03/19 07:29 Chloride IVPB 100 mls Q12HR FLY Administration Loratadine 10 mg 09/01/19 09:00 09/03/19 07:29 Claritin PO 10 mg DAILY FLY Administration Methylprednisolone Sodium Succinate 40 mg 08/30/19 12:00 09/03/19 16:46 Solu-Medrol IVP 40 mg Q6HR FLY Administration Multivitamins 1 tab 08/30/19 09:00 09/03/19 07:29 Theragran PO 1 tab DAILY FLY Administration Saccharomyces Boulardii 250 mg 08/30/19 09:00 09/03/19 07:28 Florastor PO 250 mg DAILY FLY Administration Sodium Chloride 10 ml 08/29/19 14:27 09/03/19 07:29 Flush - Normal Saline IVF 10 ml PRN PRN Administration Saline Flush Zinc Sulfate 220 mg 08/30/19 09:00 09/03/19 07:29 Zinc Sulfate PO 220 mg DAILY FLY Administration Hosp A/P - Plan Severe sepsis/Acute hypoxic resp failue due to COVID-19 pneumonia. -Completed Remdesivir -on IV Steroids -on O2 supp Thrombocytopenia - improving Obesity with a BMI of 34.6. Hyponatremia. Generalized weakness with fatigue and malaise secondary to above. Elevated inflammatory markers. Gout. PLAN: Cont IV Steroids CRP/D-dimer/Ferritin in AM ID/Pulm following Cont COVID isolation AM labs
[2019-09-04 04:37] LABS: #Lymphocytes 0.9 thou/uL (1.20-3.40); #Monocytes 0.8 thou/uL (0.11-0.59); #Neutrophils 15.1 thou/uL (1.40-6.50); %Basophils 0.2 % (0.0-1.0); %Eosinophils 0.2 % (0.0-10.0); %Lymphocytes 5.5 % (21.0-51.0); %Monocytes 4.5 % (0.0-10.0); %Neutrophils 89.5 % (42.0-75.0); Hemoglobin 14.5 g/dL (14.0-18.0); Mean Corpuscular HGB CONC 33.6 g/dL (32.0-36.0); Mean Corpuscular Hemoglobin 28.8 pg (27.0-31.0); Mean Corpuscular Volume 85.7 fL (78.0-98.0); Mean Platelet Volume 8.3 fL (7.4-10.4); Platelet Count 362 thou/uL (130-400); RBC Distribution Width 11.9 % (11.5-14.5); Red Blood Cell (RBC) Count 5.04 mill/uL (4.70-6.10); White Blood Cell (WBC) Count 16.9 thou/uL (4.8-10.8)
[2019-09-04] MEDS: methylPREDNISolone Sod Succ 40 MG VIAL IVP SCH ×3 (04:50→12:16)
[2019-09-04 04:59] LABS: ALT (SGPT) 19 U/L (8-55); AST (SGOT) 11 U/L (5-34); Albumin 3.5 g/dL (3.5-5.0); Alkaline Phosphatase 48 U/L (40-110); Anion Gap 15 mmol/L (10-20); BUN (Urea Nitrogen) 21 mg/dL (8.9-20.6); Bilirubin, Total 0.7 mg/dL (0.2-1.2); CRP (Inflammatory) 0.58 mg/dL (= or < 0.5); Calc. Creatinine Clearance 182 mL/min (70-130); Calcium 9.1 mg/dL (7.8-10.44); Carbon Dioxide 22 mmol/L (22-29); Chloride 101 mmol/L (98-107); Estimated GFR-MDRD Greater than 90; Globulin 3.2 g/dL (2.4-3.5); Glucose 208 mg/dL (70-105); Potassium 4.6 mmol/L (3.5-5.1); Protein, Total 6.7 g/dL (6.0-8.3); Sodium 133 mmol/L (136-145)
[2019-09-04] MEDS: Ascorbic Acid 500 mg Chewable Tablet PO SCH (08:08)
[2019-09-04] MEDS: Calcium Carbonate 600 MG + Vit D TAB PO SCH ×2 (08:09→16:29)
[2019-09-04] MEDS: Multivit, Therapeutic 1 TAB PO SCH (08:09)
[2019-09-04] MEDS: Loratadine 10 MG TAB PO SCH (08:09)
[2019-09-04] MEDS: guaiFENesin ER 600 MG TAB PO SCH (08:10)
[2019-09-04] MEDS: Saccharomyces boulardii 250 MG CAP PO SCH (08:10)
[2019-09-04] MEDS: Doxycycline 100 MG CAP PO SCH (08:10)
[2019-09-04] MEDS: Famotidine/PF 20 mg/2ml Vial SLOW IVP SCH (08:10)
[2019-09-04] MEDS: Enoxaparin Sodium 40 MG/0.4 ML SYRINGE SC SCH (08:10)
[2019-09-04] MEDS: Zinc Sulfate 220 MG CAP PO SCH (08:10)
[2019-09-04] MEDS: Cefepime 1 GM in Sodium Chloride 0.9% 100 ML IVPB SCH (08:11)
--- NOTE | 2019-09-04 13:04 | PRG ---
DATE OF SERVICE: 09/04/2019 SUBJECTIVE: This morning, he is better. OBJECTIVE: VITAL SIGNS: He is on nasal O2 4 L, saturations are 93%, temperature , pulse 57, respiratory rate 20, blood pressure . Eager to go home. CHEST: No wheezing, crackles. CARDIAC: Normal S1, S2. ABDOMEN: No masses. LABORATORY DATA: His serum ferritin lately is coming down. His C-reactive protein is almost back to baseline. He has received convalescent plasma. DISPOSITION: Home. I would give him total of 10 days of doxycycline, prednisone 10 days. And discharge at. Job ID: [id number]
[2019-09-04 16:38] VITALS: BP 120/74; TEMP 99.1
[2019-09-05] MEDS ORDERED: predniSONE 20 MG TAB PO SCH (08:00)
--- NOTE | 2019-09-05 11:57 | DIS ---
DATE OF ADMISSION: 08/29/2019 DATE OF DISCHARGE: 09/04/2019 DISCHARGE DISPOSITION: Home. FOLLOWUP: 1. Follow up with primary care physician, Dr. Kevin Fernandez in 1 week. 2. Follow up with Pulmonary, Dr. Ramirez and Dr. Soria as needed. ALLERGIES: NO KNOWN DRUG ALLERGIES. DISCHARGE MEDICATIONS: 1. Prednisone taper. 2. Doxycycline 100 mg b.i.d. for 1 week. 3. Pepcid 20 mg b.i.d. for 10 days. 4. Albuterol inhaler as needed. 5. Home oxygen has been arranged. PHYSICAL EXAMINATION: VITAL SIGNS: On the day of discharge show temperature 98.4 with pulse rate of 58, respirations of 18, blood pressure of 115/63 with O2 saturation of 98% on 2 L nasal cannula. BRIEF HOSPITAL COURSE: The patient is a 34-year-old male, who was diagnosed with COVID-19 approximately 8 days before this admission. He developed worsening shortness of breath requiring hospital admission. His O2 saturation on room air was 80%. He was monitored in the telemetry unit. He was started on remdesivir along with steroids. He also received convalescent plasma. Symptomatically, he has improved. He was evaluated by Infectious Disease and Pulmonary this admission. He has been cleared by Pulmonary for discharge. FINAL DIAGNOSES: 1. Severe sepsis with acute hypoxic respiratory failure secondary to COVID-19 pneumonia. 2. Generalized weakness with fatigue and malaise secondary to above. 3. Thrombocytopenia. 4. Obesity with a BMI of 34.6. 5. Hyponatremia. 6. Elevated inflammatory markers. 7. Gout. SIGNIFICANT LABORATORY DATA: CRP on admission was 27, at discharge was 0.5. Ferritin on admission was 1360, at discharge was 761. D-dimer maximum was 1.09, at discharge was 0.71. The patient understands the above plan of care. He was advised to return to emergency room if he develops any new symptoms. Job ID: [id number]
== END 2019-09-04 17:34 | disposition home or self-care (01) | DRG 871 ==
LOC: ERS 12:49 → ERHOLD 14:16 → 2SW 17:58
PROVIDERS: ADMIT Internal Medicine; ATTEND Internal Medicine
PROC: 8E0ZXY6 Isolation (ICD-10-PCS; principal; 2019-08-29)
DX: A41.89 Other specified sepsis (principal); U07.1 COVID-19; J96.01 Acute respiratory failure with hypoxia; J12.89 Other viral pneumonia; E87.1 Hypo-osmolality and hyponatremia; R65.20 Severe sepsis without septic shock; D69.6 Thrombocytopenia, unspecified; E66.01 Morbid (severe) obesity due to excess calories; M10.9 Gout, unspecified; Z68.34 Body mass index [BMI] 34.0-34.9, adult
CPT/HCPCS: 36415; 36430; 36600; 71045; 80053; 82728; 82805; 83605; 83735; 83880; 84145; 84484; 85025; 85379; 86140; 86850; 86900; 86901; 87040; 96365; 96375; J0456; J0692; J1100; J1650; J2920; J3490; J8540; S0028